=== PATIENT | male | born 1945 | race Caucasian/White ===

== ENCOUNTER 2016-08-01 10:40 | Emergency (ER) | payer MEDICARE, BC ==
--- OUTSIDE RECORDS SUMMARY | 2016-08-01 12:00 | XMS REPORT | Continuity of Care Document ---
:1945 Author Organization [facility] ([facility]) [place] [address] Phone [phone] Care Team Providers Name Role Phone Unavailable Primary Care Provider Unavailable Source Comments This disclosure is being made pursuant to the Care Everywhere program, applicable federal and state laws, and may not contain all informaitonavailable regarding this patient.[facility] ([facility]) Active Allergies and Adverse Reactions Not on File Current Medications Not on file Active Problems Not on file Social History Tobacco Use Types Packs/Day Years Used Date Never Assessed Plan of Care Health Maintenance Due Date Last Done Comments HCV Screening 1945 Hepatitis B Vaccine (1 of 3 - Primary Series) 1945 Tdap Vaccine 1958 Lipid Disorder Screening 1965 Td Vaccine 1965 Colonoscopy 04/06/1997 Prostate Cancer Screening 1997 Zoster Vaccine 2007 Pneumococcal Vaccine (1 of 2 - PCV13) 2012 Influenza Vaccine: Seasonal (#1) 11/17/2015 Results from Last 3 Months Not on file
--- OUTSIDE RECORDS SUMMARY | 2016-08-01 12:00 | XMS REPORT | Continuity of Care Document ---
:1945 Author Organization [facility] [place] [address] Care Team Providers Name Role Phone Provider, Not In System Primary Care Provider Unavailable Source Comments This disclosure is being made pursuant to the [employer] program and maynot contain all information available regarding this patient.[facility] Active Allergies and Adverse Reactions Not on File Current Medications Be aware that medications may not be up to date as of this document. Alwaysverify current medications with the patient. Not on file Active Problems Not on file Social History Tobacco Use Types Packs/Day Years Used Date Never Assessed Plan of Care Health Maintenance Due Date Last Done Comments Tetanus/Pertussis (1 - Tdap) 1966 Colonoscopy 1997 Well Adult Visit 1997 Zoster Vaccine 60+ 2007 Pneumococcal Low/Medium Risk 65+ (1 of 2 - PCV13) 2012 Retired-INFLUENZA VACCINE 12/18/2015 Results from Last 3 Months Not on file
--- NOTE | 2016-08-01 12:02 | ERNOTE ---
Upper Extremity HPI - Narrative Date of Service: 08/01/16 - General Extremities Pain Location: elbow: left - olecranon process Time Seen by Provider: 08/01/16 11:32 Source: patient, family, RN notes reviewed Exam Limitations: no limitations - Immun/Allergies/Home Medications Allergies/Adverse Reactions: Allergies Allergy/AdvReac Type Severity Reaction Status Date / Time alcohol Allergy Intermediate NECK Verified 08/01/16 10:58 SWELLS, BLACKS OUT Tetanus Vaccines and Toxoid Allergy Mild SWELLING Verified 08/01/16 10:58 [Tetanus] acetaminophen [From Percocet] Allergy Unknown Verified 08/01/16 10:58 oxycodone HCl [From Percocet] Allergy Unknown Verified 08/01/16 10:58 Penicillins AdvReac Mild RASH Verified 08/01/16 10:58 promethazine HCl AdvReac Mild RASH Verified 08/01/16 10:58 [From Phenergan] Home Medications: HOME MEDICATIONS Aspirin [Aspirin EC] 81 mg PO DAILY 04/07/12 [Last Taken Unknown] [place]-3/Dha/Epa/Fish Oil [Fish Oil] 500 mg PO BID 04/07/12 [Last Taken Unknown] Omeprazole 40 mg PO DAILY 04/07/12 [Last Taken Unknown] Simvastatin 40 mg PO DAILY 04/07/12 [Last Taken Unknown] Blood Sugar Diagnostic, Drum [Accu-Chek Compact] 1 each MC DAILY 10/17/14 [Last Taken Unknown] Cholecalciferol (Vitamin D3) [Vitamin D-3] 2,000 unit PO DAILY 10/17/14 [Last Taken Unknown] Cyanocobalamin [Vitamin B-12] 1,000 mcg PO DAILY 10/17/14 [Last Taken Unknown] Duloxetine HCl [Cymbalta] 60 mg PO DAILY 10/17/14 [Last Taken Unknown] Glimepiride [Amaryl] 8 mg PO DAILY@0700 10/17/14 [Last Taken Unknown] Ipratropium/Albuterol Sulfate [Combivent Respimat Inhal [place]] 1 puff IH QID 06/02 [Last Taken Unknown] metFORMIN HCL [Glucophage] 1,000 mg PO BIDWM 10/17/14 [Last Taken Unknown] Gabapentin [Neurontin] 300 mg PO DAILY 08/01/16 [Last Taken Unknown] Lisinopril 5 mg PO HS 08/01/16 [Last Taken Unknown] - History of Present Illness Narrative: 71 y/o male to ED by private vehicle with his for swelling, redness and drainage from the left posterior elbow that began 2 weeks ago. He got a splinter in the elbow from a wooden desk about a week before. He was unsure if he removed all of it. The drainage has been large amounts of clear yellowish thin fluid. He has not felt ill or had fever. He is diabetic but has not recently checked his blood sugar. Associated Symptoms: Denies: tingling, weakness, numbness distally, loss of power (lt arm) Prior Treament: Denies: similar symptoms before Review of Systems - Review of Systems Constitutional: Absent: recent illness, fever, chills, malaise EYE: Present: no symptoms reported ENT: Present: no symptoms reported Respiratory: Absent: shortness of breath, cough Cardiology: Present: no symptoms reported Gastrointestinal/Abdominal: Absent: nausea, vomiting Genitourinary: Present: no symptoms reported Musculoskeletal: Present: joint swelling. Absent: joint pain Skin: Present: lumps, change in color. Absent: rash, lesions Neurological: Absent: headache, dizziness/light-headedness, weakness, numbness, tingling Endocrine: Present: no symptoms reported Hematologic/Lymphatic: Absent: easy bruising, easy bleeding Psych: Present: no symptoms reported - Patient's Past Medical History Patient History - Medical: Arthritis, Diabetes Type 2, GERD, Kidney stone, Seizures Patient History - Cardiac/Respiratory: COPD, Hyperlipidemia Patient History - Cancer: Melanoma Patient History - Surgical Procedures: Colonoscopy, EGD, Other Patient History - Other: None - Family History Mother Family History - Medical: , Diabetes Type 2, Renal Failure Family History - Cardiac/Respiratory: No pertinent hx Father Family History - Medical: Family History - Cardiac/Respiratory: Myocardial Infarction - Social History Living Situations: home Abuse History: No History of abuse Psych History: No pertinent hx Smoking Status: Never smoker Alcohol Use: none Drug Use: none - Immunizations Immunizations Up to Date: No - tetanus allergy Physical Exam - Physical Exam General Appearance: Present: wd/wn, alert, no apparent distress Respiratory: Present: no respiratory distress, normal breath sounds, no accessory muscle use, lungs clear Cardiovascular/Chest: Present: regular rate, rhythm, no murmur, normal peripheral pulses Extremity Exam: Present: normal range of motion, joint redness - left posterior elbow, joint swelling - left posterior elbow, with erythema and warmth, other - mild tenderness to left posterior elbow Neurological Exam: Present: alert, oriented, normal mood/affect, no motor/ sensory deficits Skin Exam: Present: warm/dry, other - erythema to left posterior elbow, small wound with clear straw colored drainage ED Progress - Results and Orders Patient's Lab Results:: I have reviewed the patient's lab results. - Vital Signs Patient's Vital Signs:: I have reviewed the patient's vital signs. Vital Signs: Vital Signs 08/01/16 10:53 Temperature 36.0 C L Pulse Rate 77 Respiratory 12 Rate Blood Pressure 150/81 O2 Sat by Pulse 98 Oximetry - X-Ray X-Ray #1 X-Ray: elbow Interpretation: Reviewed by me X-ray Comments: Technique: Three views of the left elbow. Findings: Normal bony mineralization and alignment. No fracture or dislocation. No displacement of the olecranon fat pads to suggest traumatic joint effusion. Prominent enthesophyte off the olecranon process. There is moderate soft tissue swelling overlying the olecranon process. Findings could represent bursitis or abscess. Cannot differentiate by imaging. Correlate clinically for signs and symptoms of infection versus bursitis. IMPRESSION: SOFT TISSUE SWELLING OVER THE OLECRANON PROCESS DISCUSSED ABOVE. Electronically signed by Herson Zaragoza D.O.. - Progress/Reassessment Chief Complaint: Upper Extremity Injury/Problem Progress:: Unchanged Plan - Plan Plan: Discussed lab and xray results with patient. No indication of any infectious process r/t the initial foreign body. Swelling is likely bursitis that has drained spontaneously and is continuing to do so. Dressing applied and elbow SUYAPA wrapped for compression. Discussed f/u with orthopedics. Departure Clinical Impression: Olecranon bursitis of left elbow - Departure Disposition: Home Follow Up Needed Condition: Good Instructions: Elbow Bursitis Additional Instructions: Wear SUYAPA wrap for compression Keep wound clean and change dressing as needed Contact orthopedics on Tuesday for follow-up Referrals: Kun Titus MD [Staff Physician] -
[2016-08-01 12:07] LABS: Hematocrit 40.6 % (42.0-52.0); Hemoglobin 13.2 gm/dL (13.5-18.0); Mean Cell Volume 88.8 fl (78-100); Mean Corpuscular Hemoglobin 28.9 pg (27-31); Mean Corpuscular Hgb Conc 32.5 g/dl (32-36); Mean Platelet Volume 8.8 fl (6.0-9.5); Neutrophil # 4.2 K/mm3 (1.3-6.0); Neutrophil % 60.9 % (42-75.0); Platelet Count 282 K/mm3 (150-450); Red Blood Count 4.57 M/mm3 (4.7-6.0); Red Cell Distribution Width 13.8 % (11.5-14.0)
[2016-08-01 12:20] LABS: ALT 26 U/L (19-67); AST 18 U/L (0-48); Albumin * 3.9 gm/dl (3.4-5.0); Alkaline Phosphatase * 114 U/L (50-170); Anion Gap 11.7 mmol/L (6.8-13.8); Bilirubin, Total 0.6 mg/dL (0.0-1.1); Blood Urea Nitrogen 23 mg/dL (6-23); Ca. Corrected For Albumin 8.8 mg/dL (8.4-10.2); Carbon Dioxide 28.8 mmol/L (24-32.6); Chloride 105 mmol/L (97-106); Glucose * 131 mg/dL (70-110); Potassium 4.5 mmol/L (3.4-4.6); Sodium 141 mmol/L (132-142); Total Protein 7.6 gm/dL (6.2-8.2)
[2016-08-01 13:07] VITALS: BP 154/87
== END 2016-08-01 13:33 | disposition home or self-care (01) ==
LOC: ER 10:40
DX: M70.22 Olecranon bursitis, left elbow (principal); Z87.442 Personal history of urinary calculi; E11.9 Type 2 diabetes mellitus without complications; E78.5 Hyperlipidemia, unspecified; Z85.820 Personal history of malignant melanoma of skin; J44.9 Chronic obstructive pulmonary disease, unspecified

== ENCOUNTER 2016-08-06 13:49 | Day surgery (SDC) | payer MEDICARE, BC ==
[~2016-08-06 13:49] MED LIST: RINGERS SOLUTION,LACTATED 1,000 ML IV PRN; ceFAZolin SODIUM 1 GM VIAL IV PRN
--- OUTSIDE RECORDS SUMMARY | 2016-08-06 13:53 | XMS REPORT | Continuity of Care Document ---
:1945 Author Organization [facility] ([facility]) [place] [address] Phone [phone] Care Team Providers Name Role Phone Unavailable Primary Care Provider Unavailable Source Comments This disclosure is being made pursuant to the Care Everywhere program, applicable federal and state laws, and may not contain all informaitonavailable regarding this patient.[facility] ([facility]) Active Allergies and Adverse [...]
--- OUTSIDE RECORDS SUMMARY | 2016-08-06 13:53 | XMS REPORT | Continuity of Care Document ---
:1945 Author Organization [employer] [employer] [place] [address] Care Team Providers Name Role Phone Provider, Not In System Primary Care Provider Unavailable Source Comments This disclosure is being made pursuant to the [employer] program and maynot contain all information available regarding this patient.[employer] [facility] Active Allergies and Adverse Reactions Not on [...]
[2016-08-06] MEDS ORDERED: RINGERS SOLUTION,LACTATED 1,000 ML IV ONE (14:40)
[2016-08-06] MEDS ORDERED: BUPIVACAINE HCL 50 ML VIAL IJ ONE (16:55)
[2016-08-06] MEDS ORDERED: oxyCODONE HCL/ACETAMINOPHEN 1 TAB TABLET ONE (18:45)
[2016-08-06] MEDS ORDERED: HYDROcodone/ACETAMINOPHEN 1 EACH TABLET ONE (18:49)
[2016-08-06] MEDS ORDERED: oxyCODONE HCL/ACETAMINOPHEN 1 TAB TABLET PO PRN (18:52)
[2016-08-06] MEDS ORDERED: HYDROmorphone HCL 2 MG/ML VIAL IV PRN (18:54)
[2016-08-06] MEDS ORDERED: ACETAMINOPHEN 500 MG TABLET PO PRN (18:55)
[2016-08-06] MEDS ORDERED: diphenhydrAMINE HCL 50 MG/ML VIAL IV PRN (18:56)
[2016-08-06] MEDS ORDERED: ONDANSETRON HCL/PF 2 MG/ML VIAL IV PRN (18:56)
[2016-08-06] MEDS ORDERED: PROMETHAZINE HCL 25 MG in DEXTROSE 5 % IN WATER 50 ML IV PRN ×2 (18:57)
[2016-08-06] MEDS ORDERED: MAGNESIUM HYDROXIDE 30 ML UDC PO PRN (18:58)
[2016-08-06] MEDS ORDERED: SOD PHOS M B RC PRN (18:59)
[2016-08-06] MEDS ORDERED: NA PHOS DI BA RC PRN (18:59)
[2016-08-06] MEDS ORDERED: MAG HYDROX/ALUMINUM HYD/SIMETH 30 ML UDC PO PRN (19:00)
[2016-08-06] MEDS ORDERED: ZOLPIDEM TARTRATE 5 MG TABLET PO PRN (19:00)
[2016-08-06] MEDS ORDERED: HYDROcodone/ACETAMINOPHEN 1 EACH TABLET PO SCH (19:15)
[2016-08-06 20:16] VITALS: BP 142/72
[2016-08-06] MEDS ORDERED: SENNOSIDES/DOCUSATE SODIUM 1 TAB TABLET PO SCH (21:00)
== END 2016-08-06 13:50 | disposition home or self-care (01) ==
LOC: AMB 13:49
PROVIDERS: ATTEND Orthopaedic Surgery
PROC: 0PBL0ZZ Excision of Left Ulna, Open Approach (ICD-10-PCS; 2016-08-06)
PROC: 0MB40ZZ Excision of Left Elbow Bursa and Ligament, Open Approach (ICD-10-PCS; principal; 2016-08-06 15:00)
DX: M70.22 Olecranon bursitis, left elbow (principal); M89.9 Disorder of bone, unspecified; I10 Essential (primary) hypertension; E11.9 Type 2 diabetes mellitus without complications; E78.5 Hyperlipidemia, unspecified; J44.9 Chronic obstructive pulmonary disease, unspecified; K21.9 Gastro-esophageal reflux disease without esophagitis; E66.9 Obesity, unspecified; Z68.29 Body mass index [BMI] 29.0-29.9, adult

== ENCOUNTER 2016-09-06 10:50 | Day surgery (SDC) | payer MEDICARE, BC ==
[~2016-09-06 10:50] MED LIST changes: +HYDROmorphone HCL 2 MG/ML VIAL IV PRN
--- OUTSIDE RECORDS SUMMARY | 2016-09-06 10:54 | XMS REPORT | Continuity of Care Document ---
:1945 Author Organization [facility] ([facility]) [place] [address] Phone [phone] Care Team Providers Name Role Phone Unavailable Primary Care Provider Unavailable Source Comments This disclosure is being made pursuant to the Care Everywhere program, applicable federal and state laws, and may not contain all informaitonavailable regarding this patient.[facility] ([facility]) Active Allergies and Adverse Reactions Not on [...]
--- OUTSIDE RECORDS SUMMARY | 2016-09-06 10:54 | XMS REPORT | Continuity of Care Document ---
:1945 Author Organization [employer] [place] [address] Care Team Providers Name Role Phone Provider, Not In System Primary Care Provider Unavailable Source Comments This disclosure is being made pursuant to the [employer] program and maynot contain all information available regarding this patient.[facility] Active Allergies and Adverse Reactions Not on [...]
[2016-09-06] MEDS ORDERED: RINGERS SOLUTION,LACTATED 1,000 ML IV ONE ×2 (11:37→12:45)
[2016-09-06] MEDS ORDERED: ceFAZolin SODIUM 1 GM VIAL IV ONE (11:55)
[2016-09-06] MEDS ORDERED: BUPIVACAINE HCL 50 ML VIAL IJ ONE ×2 (12:15)
[2016-09-06] MEDS ORDERED: HYDROcodone/ACETAMINOPHEN 1 EACH TABLET PO PRN (14:06)
[2016-09-06 15:38] VITALS: BP 125/68
== END 2016-09-06 10:51 | disposition home or self-care (01) ==
LOC: AMB 10:50
PROVIDERS: ATTEND Orthopaedic Surgery
PROC: 0JQH3ZZ Repair Left Lower Arm Subcutaneous Tissue and Fascia, Percutaneous Approach (ICD-10-PCS; principal; 2016-09-06 11:45)
DX: T81.31XA Disruption of external operation (surgical) wound, not elsewhere classified, initial encounter (principal); E11.9 Type 2 diabetes mellitus without complications; I10 Essential (primary) hypertension; E78.5 Hyperlipidemia, unspecified; J44.9 Chronic obstructive pulmonary disease, unspecified; E66.9 Obesity, unspecified; Z68.30 Body mass index [BMI] 30.0-30.9, adult